=== PATIENT | female | born 1960 | race Caucasian/White ===

== ENCOUNTER 2021-06-27 22:23 | Emergency (ER) | payer OTHER ==
[~2021-06-27] VITALS: Ht 165.1 cm; Wt 63.6 kg
[~2021-06-27 22:23] MED LIST: MACROBID PO
[2021-06-27 22:31] VITALS: BP 128/71
[2021-06-27] MEDS ORDERED: LIDOcaine 1.5% w/epinephrine 1:200,000 5ml ampul IJ ONE (23:00)
[2021-06-27] MEDS ORDERED: TETanus/Pertussis (Acell)/Diphther VAC/PF (Tdap-Adult) 0.5ml syringe IMVAC ONE (23:00)
[2021-06-27] MEDS ORDERED: LIDOcaine 1% 30ml preserv. free vial IJ ONE (23:30)
--- NOTE | 2021-06-27 23:45 | NUR ---
WOUND TO R KNEE CLEANED WITH NS AND DRESSING APLYED TO KNEE
== END 2021-06-27 23:45 | disposition home or self-care (01) ==
LOC: ER 22:23
DX: S81.011A Laceration without foreign body, right knee, initial encounter (principal); S50.01XA Contusion of right elbow, initial encounter; V49.9XXA Car occupant (driver) (passenger) injured in unspecified traffic accident, initial encounter; Y93.89 Activity, other specified; Y92.89 Other specified places as the place of occurrence of the external cause; Y99.8 Other external cause status
CPT/HCPCS: 73080; 90471; 90715; 99283

== ENCOUNTER 2023-05-15 10:47 | Emergency (ER) | payer OTHER ==
[~2023-05-15] VITALS: Ht 165.1 cm; Wt 67.0 kg
[2023-05-15] MEDS ORDERED: IBUP-1984 PO (11:57)
[2023-05-15 12:10] VITALS: BP 120/68; PULSE 77; RESP 17; TEMP 97.9; O2SAT 98
== END 2023-05-15 12:15 | disposition home or self-care (01) ==
LOC: ER 10:47
DX: S59.911A Unspecified injury of right forearm, initial encounter (principal); Z90.710 Acquired absence of both cervix and uterus; Z98.890 Other specified postprocedural states; Z72.89 Other problems related to lifestyle; W10.1XXA Fall (on)(from) sidewalk curb, initial encounter; Y93.89 Activity, other specified; Y92.89 Other specified places as the place of occurrence of the external cause; Y99.8 Other external cause status
CPT/HCPCS: 73090; 99283; 99284

== ENCOUNTER 2023-10-17 01:11 | Emergency (ER) | payer OTHER ==
[~2023-10-17] VITALS: Ht 160 cm; Wt 68.2 kg
[2023-10-17] MEDS: HYDROcodone/acetaminophen 5mg/325mg tablet PO ONE (02:26)
[2023-10-17 05:21] VITALS: BP 93/58; PULSE 60; RESP 16; TEMP 98.8; O2SAT 96
[2023-10-17] MEDS ORDERED: HYDR-3965 PO (05:28)
== END 2023-10-17 05:45 | disposition home or self-care (01) ==
LOC: ER 01:11
DX: S42.431A Displaced fracture (avulsion) of lateral epicondyle of right humerus, initial encounter for closed fracture (principal); Z88.2 Allergy status to sulfonamides; Z79.899 Other long term (current) drug therapy; Z90.710 Acquired absence of both cervix and uterus; Z98.890 Other specified postprocedural states; Z72.89 Other problems related to lifestyle; X58.XXXA Exposure to other specified factors, initial encounter; Y93.89 Activity, other specified; Y92.89 Other specified places as the place of occurrence of the external cause; Y99.8 Other external cause status
CPT/HCPCS: 29105; 73080; 99284